=== PATIENT | female | born 1990 | race Caucasian/White ===

== ENCOUNTER → 2017-12-11 | Outpatient (CLI) | payer OTHER ==
[2017-12-11 10:18] LABS: BASOPHIL # 0.1 TH/MM3 (0-0.2); BASOPHIL % 1.4 % (0.0-2.0); EOSINOPHIL # 0.4 TH/MM3 (0-0.4); EOSINOPHIL % 5.3 % (0.0-4.0); HEMATOCRIT 41.2 % (35.0-46.0); HEMO FLAGS DIFF FINAL; HEMOGLOBIN 13.8 GM/DL (11.6-15.3); LYMPH % 26.3 % (9.0-44.0); LYMPHOCYTE # 1.8 TH/MM3 (1.0-4.8); MEAN CELL VOLUME 88.5 FL (80.0-100.0); MEAN CORPUSCULAR HEMOGLOBIN 29.7 PG (27.0-34.0); MEAN CORPUSCULAR HGB CONC 33.6 % (32.0-36.0); MEAN PLATELET VOLUME 9.3 FL (7.0-11.0); MONO % 9.6 % (0.0-8.0); MONOCYTE # 0.7 TH/MM3 (0-0.9); NEUT % 57.4 % (16.0-70.0); PLATELET COUNT 244 TH/MM3 (150-450); RED BLOOD COUNT 4.66 MIL/MM3 (4.00-5.30); RED CELL DISTRIBUTION WIDTH 13.6 % (11.6-17.2)
[2017-12-11 10:29] LABS: ALBUMIN 3.4 GM/DL (3.4-5.0); ANION GAP 5 MEQ/L (5-15); AST (GOT) 15 U/L (15-37); BICARBONATE 28.1 MEQ/L (21.0-32.0); BLOOD UREA NITROGEN 16 MG/DL (7-18); CALCIUM 8.6 MG/DL (8.5-10.1); CHLORIDE 108 MEQ/L (98-107); CREATININE 0.76 MG/DL (0.50-1.00); GLOMERULAR FILTRATION RATE 91 ML/MIN (>89); GLUCOSE,FASTING 79 MG/DL (74-99); POTASSIUM 4.1 MEQ/L (3.5-5.1); SODIUM (NA) 141 MEQ/L (136-145)
[2017-12-11 10:39] LABS: ALKALINE PHOSPHATASE 84 U/L (45-117); ALT (GPT) 18 U/L (10-53); FREE T4 0.87 NG/DL (0.76-1.46); TOTAL BILIRUBIN ADULT 0.3 MG/DL (0.2-1.0)
== END ==
LOC: PLAB 07:41
DX: R00.2 Palpitations (principal)
CPT/HCPCS: 36415; 80053; 84439; 84443; 85025

== ENCOUNTER 2018-07-31 03:41 | Inpatient (IN) ==
[2018-07-31] MEDS ORDERED: fentaNYL Citrate Inj 100 MCG/2 ML Ampul IV.PUSH PRN ×2 (04:20)
[2018-07-31] MEDS ORDERED: Naloxone Inj 0.4 MG/ML Vial IV.PUSH PRN (04:20)
[2018-07-31] MEDS ORDERED: Sod Chloride 0.9% Inj 1,000 ML IV.CONT PRN (04:20)
[2018-07-31] MEDS ORDERED: Sodium Chlor 0.9% Inj 500 ML IV.SIG PRN (04:20)
[2018-07-31] MEDS ORDERED: Oxytocin 30 Units/500ml Premix 30 UNITS/500 ML BAG IV.SIG ONE (04:20)
[2018-07-31] MEDS ORDERED: Citric Acid/Sodium Citrate Liq 30 ML UDC PO SCH ×2 (04:30→05:45)
--- NOTE | 2018-07-31 04:50 | ED ---
History of Present Illness Primary Care Physician: Brenda Medley MD Moth Exterminator Dr. Chan Chief Complaint: Vaginal bleeding History of Present Illness: 27-year-old at 34-week and 5 days presents complaining of timothy vaginal bleeding. Patient was admitted approximately 1-2 days ago for the same complaint. She reports getting up out of bed bleeding passing clots bleeding down the leg. 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 Past medical history asthma Allergies amoxicillin erythromycin past surgical history delivery and pilonidal cyst removal Weeks Gestation:: 34 Para: 1 : 3 Review of Systems All other systems reviewed negative except as stated in HPI [facility] - Medical History Medical History: Medical History (Last Updated 07/28/18 @ 17:24 by Franklin Chan MD) Delivery by section for breech presentation (Acute) Asthma affecting in third trimester (Acute) Asthma - Surgical History Surgical History: Surgical History (Last Updated 07/28/18 @ 17:24 by Franklin Chan MD) History of excision of pilonidal cyst - Family History Family History: Family History (Last Updated 07/28/18 @ 17:24 by Franklin Chan MD) Other Family history normal - Tobacco History Second Hand Smoke Exposure: No Smoking Status: Never smoker - Alcohol History How Often Do You Have a Drink Containing Alcohol: Never - Substance Use History Substance History: No History of Abuse - Travel History History of Recent Travel: No Medications and Allergies Active Medications: Active Medications Citric Acid/Sodium Citrate (Sodium Citrate/Citric Acid Liq) 30 ml PO BUSINESS AND FINANCIAL COUNSEL [facility] Stop: 08/04/18 04:29 Fentanyl Citrate (Fentanyl Inj) 50 mcg IV.PUSH Q1H PRN PRN Reason: Pain Scale 3 - 5 Fentanyl Citrate (Fentanyl Inj) 100 mcg IV.PUSH Q1H PRN PRN Reason: PAIN SCALE 6 TO 10 Clindamycin/Sodium Chloride (Cleocin 900 Mg/Ns Premix) 900 mg in 50 mls @ 100 mls/hr IV.SIG Q8H JORGE L Lactated Ringer's (Lr 1000 Ml Inj) 1,000 mls @ 3,000 mls/hr IV.SIG UNSCH PRN PRN Reason: compromise or epidural Lactated Ringer's (Lr 1000 Ml Inj) 1,000 mls @ 125 mls/hr IV.CONT .Q8H JORGE L Sodium Chloride (Ns Inj) 500 mls @ 1,000 mls/hr IV.SIG UNSCH PRN PRN Reason: SEE LABEL COMMENTS Sodium Chloride (Ns Inj) 1,000 mls @ 100 mls/hr IV.CONT .Q10H PRN PRN Reason: SEE LABEL COMMENTS Oxytocin (Pitocin 30 Units/Ns 500 Ml Premix) 30 units in 500 mls @ 999 mls/hr IV.SIG BOLUS ONE Stop: 07/31/18 04:50 Lidocaine HCl (Xylocaine 1% Inj) 0.1 ml I-DERMAL PRN PRN PRN Reason: For IV start Stop: 08/03/18 04:19 Lidocaine HCl (Xylocaine 1% Inj) 10 ml INFILTRATN PRN PRN PRN Reason: For episiotomy repair Stop: 08/02/18 04:19 Mineral Oil (Muri-Lube Oil) 10 ml TOPICAL PRN PRN PRN Reason: PRN perineal massage Naloxone HCl (Narcan Inj) 0.1 mg IV.PUSH Q2M PRN PRN Reason: for opiate reversal Allergies Allergy/AdvReac Type Severity Reaction Status Date / Time amoxicillin Allergy Severe HIVES Verified 07/28/18 16:00 erythromycin base Allergy Severe HIVES Verified 07/28/18 16:00 Home Medications Medication Instructions Recorded Confirmed Type vit-iron fum-folic ac 1 tab PO DAILY 07/28/18 07/31/18 History [ Vitamin] Exam Vital signs: Vital Signs 07/31/18 03:56 07/31/18 04:00 Temperature 98.1 F Pulse Rate 89 Respiratory Rate 18 Blood Pressure 131/81 Intake & Output 07/30/18 07/30/18 07/31/18 06:59 18:59 06:59 Weight 113.398 kg - Constitutional no acute distress - Routine HEENT Exam Head: Present: normocephalic ENT: Present: mucous membranes moist - Routine Neck Exam Present: supple - Routine Chest/Breast/Axilla Exam Chest wall: Absent: tenderness - Routine Respiratory Exam Absent: accessory muscle use - Routine Cardiovascular Exam Present: RRR - Routine Abdominal Exam Present: soft (Gravid, NST in progress moderate variability noted, uterine incision is nontender to touch or palpation no contractions palpated) - Routine Exam Comments: Sterile speculum exam approximately 20 cc of clotted blood noted at the cervical os-dark in color. Vaginal exam cervix is 1-2 cm dilated 50% effaced -2 -3 station with a part palpated Limited bedside ultrasound foot seen at the cervical os-consistent with footling breech cervix appears shortened however limited by no transvaginal component placenta does not appear to be consistent with abruption at this time Assessment and Plan - Diagnosis (1) Vaginal bleeding during , antepartum Code(s): O46.90 - Antepartum hemorrhage, unspecified, unspecified trimester Status: Acute (2) Footling breech presentation Code(s): O32.8XX0 - Maternal care for other malpresentation of fetus, not applicable or unspecified Status: Acute (3) Previous section Code(s): Z98.891 - History of uterine scar from previous surgery Status: Acute (4) 34 weeks gestation of Code(s): Z3A.34 - 34 weeks gestation of Status: Acute - Plan Plan admit N.p.o. CBC, PT PTT, fibrinogen, type and screen will change to type and cross if bleeding resumes Patient has received a dose of steroids on her last admission IV antibiotics Discussed with Dr. Fenton-agrees with admission and also advises official ultrasound in the a.m. Discharge Plan - Discharge Disposition Patient Disposition: ED Admit(ED Internal Use Only) - Discharge Condition Condition: Good - Physicians Team ED Provider: Chana Fonseca Primary Care Provider: Brenda Medley
--- NOTE | 2018-07-31 04:53 | P.HPOB ---
Patient Name: Suzanne Cramer Date of : 89 Patient Status: Inpatient Attending Provider: Franklin Chan Date: 07/31/18 04:42 Initialization Date: 07/31/18 04:42 History of Present Illness Primary Care Physician: Brenda Medley MD Pattern Attendant Dr. Chan Chief Complaint: Vaginal bleeding History of Present Illness: 27-year-old at 34-week and 5 days presents complaining of timothy vaginal bleeding. Patient was admitted approximately 1-2 days ago for the same complaint. She reports getting up out of bed bleeding passing clots bleeding down the leg. 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 Past medical history asthma Allergies amoxicillin erythromycin past surgical history delivery and pilonidal cyst removal Weeks Gestation:: 34 Para: 1 : 3 Review of Systems All other systems reviewed negative except as stated in HPI [facility] - Medical History Medical History: Medical History (Last Updated 07/28/18 @ 17:24 by Franklin Chan MD) Delivery by section for breech presentation (Acute) Asthma affecting in third trimester (Acute) Asthma - Surgical History Surgical History: Surgical History (Last Updated 07/28/18 @ 17:24 by Franklin Chan MD) History of excision of pilonidal cyst - Family History Family History: Family History (Last Updated 07/28/18 @ 17:24 by Franklin Chan MD) Other Family history normal - Tobacco History Second Hand Smoke Exposure: No Smoking Status: Never smoker - Alcohol History How Often Do You Have a Drink Containing Alcohol: Never - Substance Use History Substance History: No History of Abuse - Travel History History of Recent Travel: No Medications and Allergies Active Medications: Active Medications Citric Acid/Sodium Citrate (Sodium Citrate/Citric Acid Liq) 30 ml PO [employer] [facility] Stop: 08/04/18 04:29 Fentanyl Citrate (Fentanyl Inj) 50 mcg IV.PUSH Q1H PRN PRN Reason: Pain Scale 3 - 5 Fentanyl Citrate (Fentanyl Inj) 100 mcg IV.PUSH Q1H PRN PRN Reason: PAIN SCALE 6 TO 10 Clindamycin/Sodium Chloride (Cleocin 900 Mg/Ns Premix) 900 mg in 50 mls @ 100 mls/hr IV.SIG Q8H [facility] Lactated Ringer's (Lr 1000 Ml Inj) 1,000 mls @ 3,000 mls/hr IV.SIG UNSCH PRN PRN Reason: compromise or epidural Lactated Ringer's (Lr 1000 Ml Inj) 1,000 mls @ 125 mls/hr IV.CONT .Q8H JORGE L Sodium Chloride (Ns Inj) 500 mls @ 1,000 mls/hr IV.SIG UNSCH PRN PRN Reason: SEE LABEL COMMENTS Sodium Chloride (Ns Inj) 1,000 mls @ 100 mls/hr IV.CONT .Q10H PRN PRN Reason: SEE LABEL COMMENTS Oxytocin (Pitocin 30 Units/Ns 500 Ml Premix) 30 units in 500 mls @ 999 mls/hr IV.SIG BOLUS ONE Stop: 07/31/18 04:50 Lidocaine HCl (Xylocaine 1% Inj) 0.1 ml I-DERMAL PRN PRN PRN Reason: For IV start Stop: 08/03/18 04:19 Lidocaine HCl (Xylocaine 1% Inj) 10 ml INFILTRATN PRN PRN PRN Reason: For episiotomy repair Stop: 08/02/18 04:19 Mineral Oil (Muri-Lube Oil) 10 ml TOPICAL PRN PRN PRN Reason: PRN perineal massage Naloxone HCl (Narcan Inj) 0.1 mg IV.PUSH Q2M PRN PRN Reason: for opiate reversal Allergies Allergy/AdvReac Type Severity Reaction Status Date / Time amoxicillin Allergy Severe HIVES Verified 07/28/18 16:00 erythromycin base Allergy Severe HIVES Verified 07/28/18 16:00 Home Medications Medication Instructions Recorded Confirmed Type vit-iron fum-folic ac 1 tab PO DAILY 07/28/18 07/31/18 History [ Vitamin] Exam Vital signs: Vital Signs 07/31/18 03:56 07/31/18 04:00 Temperature 98.1 F Pulse Rate 89 Respiratory Rate 18 Blood Pressure 131/81 Intake & Output 07/30/18 07/30/18 07/31/18 06:59 18:59 06:59 Weight 113.398 kg - Constitutional no acute distress - Routine HEENT Exam Head: Present: normocephalic ENT: Present: mucous membranes moist - Routine Neck Exam Present: supple - Routine Chest/Breast/Axilla Exam Chest wall: Absent: tenderness - Routine Respiratory Exam Absent: accessory muscle use - Routine Cardiovascular Exam Present: RRR - Routine Abdominal Exam Present: soft (Gravid, NST in progress moderate variability noted, uterine incision is nontender to touch or palpation no contractions palpated) - Routine Exam Comments: Sterile speculum exam approximately 20 cc of clotted blood noted at the cervical os-dark in color. Vaginal exam cervix is 1-2 cm dilated 50% effaced -2 -3 station with a part palpated Limited bedside ultrasound foot seen at the cervical os-consistent with footling breech cervix appears shortened however limited by no transvaginal component placenta does not appear to be consistent with abruption at this time Assessment and Plan - Diagnosis (1) Vaginal bleeding during , antepartum Code(s): O46.90 - Antepartum hemorrhage, unspecified, unspecified trimester Status: Acute (2) Footling breech presentation Code(s): O32.8XX0 - Maternal care for other malpresentation of fetus, not applicable or unspecified Status: Acute (3) Previous section Code(s): Z98.891 - History of uterine scar from previous surgery Status: Acute (4) 34 weeks gestation of Code(s): Z3A.34 - 34 weeks gestation of Status: Acute - Plan Plan admit N.p.o. CBC, PT PTT, fibrinogen, type and screen will change to type and cross if bleeding resumes Patient has received a dose of steroids on her last admission IV antibiotics Discussed with Dr. Fenton-agrees with admission and also advises official ultrasound in the a.m.
[2018-07-31 04:57] LABS: Baso # (Auto) 0.1 th/mm3 (0.0-0.2); Baso % (Auto) 0.4 % (0.0-2.0); Eos # (Auto) 0.2 th/mm3 (0.0-0.4); Eos % (Auto) 1.3 % (0.0-4.0); Hematocrit 37.8 % (35.0-46.0); Hemoglobin 13.3 gm/dL (11.6-15.3); Lymph # (Auto) 2.3 th/mm3 (1.0-4.8); Mean Corpuscular HGB Conc 35.2 % (32.0-36.0); Mean Corpuscular Hemoglobin 31.7 pg (27.0-34.0); Mean Platelet Volume 9.1 fL (7.0-11.0); Mono # (Auto) 1.3 th/mm3 (0.0-0.9); Mono % (Auto) 10.2 % (0.0-8.0); Neut # (Auto) 8.9 th/mm3 (1.8-7.7); Neut % (Auto) 70.1 % (16.0-70.0); Platelet Count 227 th/mm3 (150-450); Red Blood Count 4.21 mil/mm3 (4.00-5.30); Red Cell Distribution Width 13.1 % (11.6-17.2); White Blood Count 12.6 th/mm3 (4.0-11.0)
[2018-07-31 05:11] LABS: Activated Partial Thrombo Time 25.6 sec (23.4-31.7); INR 0.9 Ratio; Prothrombin Time 9.4 sec (9.8-11.6)
[2018-07-31 05:17] LABS: Amorphous Sediment,Urine Rare /hpf; Bilirubin,Urine Negative (Negative); Clarity,Urine Hazy (Clear); Color,Urine Yellow (Yellw/Straw); Glucose,Urine (UA) Negative (Negative); Leukocyte Esterase,Urine Negative (Negative); Mucus,Urine Few /lpf (Occasional); Nitrite,Urine Negative (Negative); Specific Gravity,Urine 1.011 (1.002-1.035); Squamous Epithelial Cell,Urine 1 /hpf (0-5)
[2018-07-31 05:19] LABS: Alanine Aminotransferase 23 U/L (10-53); Albumin 2.4 g/dL (3.4-5.0); Anion Gap 10 meq/L (5-15); Aspartate Aminotransferase 16 U/L (15-37); Blood Urea Nitrogen 8 mg/dL (7-18); Calcium 7.9 mg/dL (8.5-10.1); Carbon Dioxide 21.1 meq/L (21.0-32.0); Chloride 111 meq/L (98-107); Glomerular Filtration Rate Greater Than 89 mL/min (>89); Glucose,Random 94 mg/dL (74-106); Potassium 3.7 meq/L (3.5-5.1); Sodium 142 meq/L (136-145)
[2018-07-31 05:21] LABS: Alkaline Phosphatase 58 U/L (45-117); Total Protein 6.3 g/dL (6.4-8.2)
[2018-07-31] MEDS ORDERED: Mag Sulf/Water 4 gm/100 ml 100 ML IV.SIG ONE ×2 (05:42→06:00)
[2018-07-31] MEDS ORDERED: Mag Sulf/Water 40 gm/1000 ml 40 GM/1,000 ML BAG IV.CONT ONE (05:43)
[2018-07-31] MEDS ORDERED: Mag Sulf/Water 40 gm/1000 ml 40 GM/1,000 ML BAG IV.CONT SCH (06:00)
[2018-07-31] MEDS ORDERED: Clindamycin 900 mg/NS Premix 900 MG/50 ML PIGGYBACK IV.SIG SCH (06:22)
[2018-07-31] MEDS ORDERED: Acetaminophen 325 MG Tablet PO PRN (06:22)
--- NOTE | 2018-07-31 06:34 | P.OBGPN ---
S: no more bleeding or pain, no LOF, + FM, O: : 2-3cm/50%/-2. Scant dark red blood on glove FHTs: 140s moderate variability, aceleration present, around 4 variable deceleration with contractions at 5am, since resolved TOCO: none at this time, overnight occasional ctx ever 10min A/P: 27 yo at 34w5d admitted for vaginal bleeding 1. IUP: cat 1-2 tracing, mostly reassuring - EFW (07/29) = 2313g (31%) AC 16%, ARTURO 14cm, placenta fundal Rt lateral - s/p BMZ (07/29) - GBS pending 2. Vaginal bleeding: unsure etiology at this time, could be combination of cervical change / abruption. Pt had prior admission x 2d (07/29-) for VB w/o source. Pt cervix at that time was C/T/H on review and today 1-2/50/-3 and now 2 -3cm and deonte occasionally with some sporadic variable deceleration that responded to IV fluids. Discussed plan and concerns with pt, she verbalized understanding and had no further questions. - Rh pos - Today BPP 8/8, ARTURO 11cm 3. Malpresentation: breech on US today 3. h/o : for breech at term, pt desires , discussed risks / benefits of TOLAC, , and scheduled repeat ,pt aware depends on multiple variables: position, status and bisohp score and or spontaneous labor 4. Asthma: controlled w/o meds PLAN: NICU consult, continuous EFM and toco, BPP today, allow to eat, d/c mag and abx as not indicated, KB test as flow not available, nursing to collect, GBS culture NOT PCR, wet prep and GCC. Admitted indefinitely at this time and continue to watch for signs of abruption, labor, distress.
[2018-07-31] MEDS: Prenatal Vit/Ca/Iron/Folic Acid Tablet PO SCH (10:52)
[2018-07-31] MEDS ORDERED: fentaNYL Citrate Inj 100 MCG/2 ML Ampul IV.PUSH ONE (17:45)
--- NOTE | 2018-08-01 09:01 | P.OBGPN ---
34 6/7 weeks G1 admitted for vaginal bleeding 2nd episode in one week, transverse presentation pt feeling contractions every 6-8 minutes starting in her back and moving around to abd sve per nurse 3 cm strip reviewed by Dr Chan, reactive category 1 pt had steroids last visit Plan: keep NPO shower iv hydration watch for labor lungs CTA anterior/posterior abd soft NT, +BS heart RRR, S1/S1 no murmur
[2018-08-01] MEDS: Prenatal Vit/Ca/Iron/Folic Acid Tablet PO SCH (09:11)
--- NOTE | 2018-08-01 13:32 | P.OBGPN ---
DR HEAD IN TO SEE PT PT DOING WELL DENIES BLEEDING OR CONTRACTIONS SHE WILL BE TRANSFERRED TO ANTEPARTUM PLAN FOR PRIMARY C SECTION IF PT GOES INTO LABOR AND BABY REMAINS BREECH OR COMPROMISE
[2018-08-02] MEDS ORDERED: Ketorolac Inj 30 MG/ML (IVP) Vial IV.PUSH ONE (03:00)
[2018-08-02] MEDS ORDERED: Morphine Sulfate PF Inj 5 MG/10 ML Ampul ONE (03:05)
[2018-08-02] MEDS ORDERED: Zolpidem Tartrate 5 MG Tablet PO PRN (04:42)
[2018-08-02] MEDS ORDERED: Simethicone 80 MG Chew Tablet PO PRN (04:42)
--- NOTE | 2018-08-02 04:52 | P.OP ---
- Preoperative Diagnosis (1) 35 weeks gestation of (2) Breech (3) Labor and delivery affected by breech presentation - Postoperative Diagnosis (1) Previous section (2) Delivery by section for breech presentation (3) 35 weeks gestation of (4) Breech Date of procedure: 08/02/18 Procedure: Repeat low transverse section Surgeon: Franklin Chan MD Estimated blood loss (mL): 600 Pathology: other (Placenta) Operation and Findings: Count were correct Findings viable female with Apgars of 9 and 9 weight was 4 pounds 8 ounces Normal uterus normal tubes normal ovaries. The placenta looked grossly normal. Indication for the procedure this is a patient who is been in the hospital for several days she has had 2 episodes of right red vaginal bleeding. She was Admitted and followed. The Strip is been category 1 the entire time she got up this morning had some bleeding and was having Some strong contractions when examined by the charge nurse she was 5 cm and in active labor. was called Procedure in detail Taken to the operating room identified by name band and verbally and given a spinal anesthetic. She was prepped and draped in the usual sterile manner for a section. A time out was taken. The old incision was excised sharply and the Pfannenstiel incision was made and carried down to the fascia the fascia was nicked bilaterally and the fascia was taken off the rectus muscle by blunt and sharp dissection. The rectus muscles were spread bluntly and the peritoneum was entered under direct vision. The incision was extended with care to avoid the urinary bladder. A bladder blade was placed and a bladder flap was created in the usual fashion. The lower uterine segment was then incised sharply in a transverse manner and taken down in the midline until the uterine cavity was entered. The incision was extended with the surgeon's fingers. The breech was grasped and with gentle fundal pressure delivered the legs and the thorax. The arms were reduced with gentle fundal pressure the vertex was delivered. The hypopharynx and nasopharynx were suctioned. The cord clamping was delayed 45 seconds and then the cord was clamped cut and the was handed over to the resuscitation team cord blood was obtained the placenta was removed manually and the uterus was curettaged twice with a wet lap. The uterus was delivered from the abdomen. The uterine incision was repaired with 0 Vicryl in a running fashion in 2 layers the second layer imbricating the first. The cul-de-sac and gutters were cleaned of blood and debris the uterus was delivered back into the abdomen. The rectus muscles were reapproximated with 0 Vicryl in a running the fascia was repaired with 0 Vicryl from lateral to midline bilaterally. The subcutaneous layer was repaired with a 3-0 Vicryl. The skin was repaired with a 4-0 Monocryl in a subcuticular manner. Patient tolerated the procedure well and went to recovery room in good condition.
[2018-08-02] MEDS ORDERED: ceFAZolin Inj 2,000 MG in Sodium Chlor 0.9% Inj 80 ML IV.SIG SCH (05:00)
[2018-08-02] MEDS ORDERED: Naloxone Inj 0.4 MG/ML Vial IV.PUSH PRN (06:26)
[2018-08-02] MEDS: Oxytocin 30 Units/500ml Premix 30 UNITS/500 ML BAG IV.SIG ONE ×2 (08:29→17:24)
[2018-08-02] MEDS: Prenatal Vit/Ca/Iron/Folic Acid Tablet PO SCH (08:30)
[2018-08-02] MEDS ORDERED: miSOPROStol 200 MCG Tablet PO ONE (09:00)
[2018-08-02] MEDS ORDERED: Oxytocin 30 Units/500ml Premix 30 UNITS/500 ML BAG IV.SIG ONE (09:00)
[2018-08-02] MEDS: Oxytocin 30 Units/500ml Premix 30 UNITS/500 ML BAG IV.SIG PRN ×2 (11:32→23:21)
[2018-08-02] MEDS: ceFAZolin 2 GM Premix Inj 2 GM/50 ML PIGGYBACK IV.SIG SCH ×2 (11:42→18:44)
[2018-08-02 14:29] LABS: Hemoglobin 12.1 gm/dL (11.6-15.3); Mean Corpuscular HGB Conc 35.6 % (32.0-36.0); Mean Corpuscular Hemoglobin 32.5 pg (27.0-34.0); Mean Corpuscular Volume 91.3 fL (80.0-100.0); Mean Platelet Volume 8.5 fL (7.0-11.0); Platelet Count 204 th/mm3 (150-450); Red Blood Count 3.72 mil/mm3 (4.00-5.30); Red Cell Distribution Width 13.2 % (11.6-17.2); White Blood Count 21.5 th/mm3 (4.0-11.0)
[2018-08-02] MEDS ORDERED: miSOPROStol 200 MCG Tablet PO PRN (14:32)
[2018-08-02] MEDS: miSOPROStol 200 MCG Tablet PO SCH (23:21)
[2018-08-03] MEDS: miSOPROStol 200 MCG Tablet PO SCH ×3 (04:00→15:45)
[2018-08-03] MEDS: Oxytocin 30 Units/500ml Premix 30 UNITS/500 ML BAG IV.SIG PRN (06:15)
[2018-08-03 06:54] LABS: Baso # (Auto) 0.1 th/mm3 (0.0-0.2); Baso % (Auto) 0.4 % (0.0-2.0); Eos # (Auto) 0.3 th/mm3 (0.0-0.4); Eos % (Auto) 2.3 % (0.0-4.0); Hematocrit 31.8 % (35.0-46.0); Lymph # (Auto) 2.4 th/mm3 (1.0-4.8); Lymph % (Auto) 16.8 % (9.0-44.0); Mean Corpuscular HGB Conc 34.6 % (32.0-36.0); Mean Corpuscular Hemoglobin 31.9 pg (27.0-34.0); Mean Corpuscular Volume 92.3 fL (80.0-100.0); Mean Platelet Volume 8.6 fL (7.0-11.0); Mono # (Auto) 1.3 th/mm3 (0.0-0.9); Mono % (Auto) 9.2 % (0.0-8.0); Neut % (Auto) 71.3 % (16.0-70.0); Platelet Count 175 th/mm3 (150-450); Red Blood Count 3.45 mil/mm3 (4.00-5.30); Red Cell Distribution Width 13.5 % (11.6-17.2); White Blood Count 14.1 th/mm3 (4.0-11.0)
--- NOTE | 2018-08-03 08:58 | P.PNOB ---
Subjective Post op day: 1 Objective Vital Signs/I&O: Vital Signs 08/02/18 10:00 08/02/18 14:00 08/02/18 19:30 Temperature 98.0 F 98.2 F Pulse Rate 88 78 Respiratory Rate 18 20 18 Blood Pressure 113/72 108/62 08/02/18 20:00 08/03/18 00:00 08/03/18 03:56 Temperature 97.7 F 98.0 F 98.6 F Pulse Rate 97 H 85 87 Respiratory Rate 18 18 18 Blood Pressure 121/69 122/69 119/78 08/03/18 07:11 08/03/18 08:00 Temperature 98.1 F Pulse Rate 83 Respiratory Rate 18 18 Blood Pressure 120/69 Intake & Output 08/02/18 08/03/18 08/03/18 18:59 06:59 18:59 Intake Total 1100 / 1100 500 / 500 Balance 1100 / 1100 500 / 500 Intake: IV 1100 / 1100 500 / 500 Pitocin 30 Units/NS 500 ml 1000 / 1000 500 / 500 Premix 30 units In 500 ml @ 100 mls/hr IV.SIG UNSCH PRN Rx#: [id number] Ancef 2 GM Premix Inj 2 gm In 100 / 100 50 ml @ 200 mls/hr IV.SIG Q8H JORGE L Rx#:[id number] Result Diagrams: 08/03/18 06:30 07/31/18 04:45 Objective Remarks: GENERAL: Well-nourished, well-developed patient. CARDIOVASCULAR: Regular rate and rhythm without murmurs, gallops, or rubs. RESPIRATORY: Breath sounds equal bilaterally. No accessory muscle use. ABDOMEN/GI: Abdomen soft, non-tender, bowel sounds present. Incision: dressing, Clean, dry and intact. Fundus: Firm, non-tender at umbilicus. GENITOURINARY: Light to moderate bleeding. EXTREMITIES: No cyanosis or edema, non-tender, without signs of DVT. Medications and IVs: Active Medications Diphtheria/Pertussis/Tetanus Vacc (Boostrix Vaccine Inj) 0.5 ml IM .ONCE ONE Stop: 08/03/18 16:01 Ibuprofen (Motrin) 800 mg PO Q8H PRN PRN Reason: cramping Last Admin: 08/03/18 03:59 Dose: 800 mg Measles/Mumps/Rubella Vaccine Live (M-M-R Ii Vaccine Inj) 0.5 ml SQ .ONCE ONE Stop: 08/03/18 16:01 Misoprostol (Cytotec) 400 mcg PO Q6H [facility] Last Admin: 08/03/18 04:00 Dose: 400 mcg Ondansetron HCl (Zofran Inj) 4 mg IV.PUSH Q6H PRN PRN Reason: NAUSEA OR VOMITING Oxycodone/Acetaminophen (Percocet 5/325 Mg) 1 tab PO Q4H PRN PRN Reason: PAIN SCALE 3 TO 5 Oxycodone/Acetaminophen (Percocet 5/325 Mg) 2 tab PO Q4H PRN PRN Reason: PAIN SCALE 6 TO 10 Vit/Calcium/Iron/Folic Ac (Stuartnatal Plus 3) 1 tab PO DAILY [facility] Last Admin: 08/02/18 08:30 Dose: Not Given Simethicone (Mylicon Chew) 80 mg PO QID PRN PRN Reason: FLATULENCE Sodium Chloride (Ns Flush) 2 ml IV.FLUSH BID [facility] Last Admin: 08/03/18 08:00 Dose: Not Given Sodium Chloride (Ns Flush) 2 ml IV.FLUSH PRN PRN PRN Reason: FLUSH AFTER USING IV ACCESS Zolpidem Tartrate (Ambien) 5 mg PO HS PRN PRN Reason: INSOMNIA Assessment and Plan - Diagnosis (1) Status post repeat low transverse section Code(s): Z98.891 - History of uterine scar from previous surgery Status: Acute Plan: routine post op care - Plan post op day 1, repeat c section at 35 weeks/breech pt had 2 episodes of vaginal bleeding with clots over a 3 day period, admitted for observation and went into labor pt doing well yesterday vaginal bleeding had increased but it normal this am, labs stable pt ambulating in room without difficulty pain well managed with motrin, pt aware that percocet is available if needed pt to have gibbs removed and shower today and bonding with infant routine post op care Discharge Planning: dc home 1-2 days
[2018-08-03] MEDS: Prenatal Vit/Ca/Iron/Folic Acid Tablet PO SCH (09:31)
[2018-08-03] MEDS ORDERED: Measles/Mumps/Rubella Vaccine Inj 0.5 ML Vial SQ ONE (16:00)
[2018-08-03] MEDS ORDERED: Diphtheria/Tetanus/Pertussis Vaccine Inj 0.5 ML Syringe IM ONE (16:00)
--- NOTE | 2018-08-04 08:08 | P.PNOB ---
Subjective Post op day: 2 Interval history: pt doing well, much less bleeding today Objective Vital Signs/I&O: Vital Signs 08/03/18 20:00 Temperature 98.3 F Pulse Rate 67 Respiratory Rate 18 Blood Pressure 129/77 Result Diagrams: 08/03/18 06:30 07/31/18 04:45 Objective Remarks: GENERAL: Well-nourished, well-developed patient. CARDIOVASCULAR: Regular rate and rhythm without murmurs, gallops, or rubs. RESPIRATORY: Breath sounds equal bilaterally. No accessory muscle use. ABDOMEN/GI: Abdomen soft, non-tender, bowel sounds present. Incision: Clean, dry and intact. Fundus: Firm, non-tender at umbilicus. GENITOURINARY: Light to moderate bleeding. EXTREMITIES: No cyanosis or edema, non-tender, without signs of DVT. Medications and IVs: Active Medications Ibuprofen (Motrin) 800 mg PO Q8H PRN PRN Reason: cramping Last Admin: 08/04/18 00:24 Dose: 800 mg Ondansetron HCl (Zofran Inj) 4 mg IV.PUSH Q6H PRN PRN Reason: NAUSEA OR VOMITING Oxycodone/Acetaminophen (Percocet 5/325 Mg) 1 tab PO Q4H PRN PRN Reason: PAIN SCALE 3 TO 5 Oxycodone/Acetaminophen (Percocet 5/325 Mg) 2 tab PO Q4H PRN PRN Reason: PAIN SCALE 6 TO 10 Vit/Calcium/Iron/Folic Ac (Stuartnatal Plus 3) 1 tab PO DAILY [facility] Last Admin: 08/03/18 09:31 Dose: 1 tab Simethicone (Mylicon Chew) 80 mg PO QID PRN PRN Reason: FLATULENCE Sodium Chloride (Ns Flush) 2 ml IV.FLUSH BID [facility] Last Admin: 08/03/18 20:22 Dose: 2 ml Sodium Chloride (Ns Flush) 2 ml IV.FLUSH PRN PRN PRN Reason: FLUSH AFTER USING IV ACCESS Zolpidem Tartrate (Ambien) 5 mg PO HS PRN PRN Reason: INSOMNIA Assessment and Plan - Diagnosis (1) Status post repeat low transverse section Code(s): Z98.891 - History of uterine scar from previous surgery Status: Acute - Plan post op day 2, repeat c section at 35 weeks/breech pt had 2 episodes of vaginal bleeding with clots over a 3 day period, admitted for observation and went into labor pt doing well pt ambulating in room without difficulty and bonding with infant routine post op care Discharge Planning: dc home POD #3 - Attending Attestation pt seen by me
[2018-08-04] MEDS: Prenatal Vit/Ca/Iron/Folic Acid Tablet PO SCH (09:00)
[2018-08-04 16:55] VITALS: RESP 18
[2018-08-05 07:50] VITALS: BP 126/80; PULSE 98; TEMP 98.6
[2018-08-05] MEDS: Prenatal Vit/Ca/Iron/Folic Acid Tablet PO SCH (10:43)
--- NOTE | 2018-08-05 11:00 | P.PNOB ---
Subjective Post op day: 3 Interval history: doing well, ready for discharge Objective Vital Signs/I&O: Vital Signs 08/04/18 16:15 08/04/18 20:00 08/05/18 07:48 Temperature 98.5 F 98.6 F Pulse Rate 96 H 100 H 98 H Respiratory Rate 18 18 18 Blood Pressure 138/71 123/67 126/80 Result Diagrams: 08/03/18 06:30 07/31/18 04:45 Objective Remarks: GENERAL: Well-nourished, well-developed patient. CARDIOVASCULAR: Regular rate and rhythm without murmurs, gallops, or rubs. RESPIRATORY: Breath sounds equal bilaterally. No accessory muscle use. ABDOMEN/GI: Abdomen soft, non-tender, bowel sounds present. Incision: Clean, dry and intact. Fundus: Firm, non-tender at umbilicus. GENITOURINARY: Light to moderate bleeding. EXTREMITIES: No cyanosis or edema, non-tender, without signs of DVT. Medications and IVs: Active Medications Ibuprofen (Motrin) 800 mg PO Q8H PRN PRN Reason: cramping Last Admin: 08/04/18 19:49 Dose: 800 mg Ondansetron HCl (Zofran Inj) 4 mg IV.PUSH Q6H PRN PRN Reason: NAUSEA OR VOMITING Oxycodone/Acetaminophen (Percocet 5/325 Mg) 1 tab PO Q4H PRN PRN Reason: PAIN SCALE 3 TO 5 Oxycodone/Acetaminophen (Percocet 5/325 Mg) 2 tab PO Q4H PRN PRN Reason: PAIN SCALE 6 TO 10 Vit/Calcium/Iron/Folic Ac (Stuartnatal Plus 3) 1 tab PO DAILY [facility] Last Admin: 08/05/18 10:43 Dose: Not Given Simethicone (Mylicon Chew) 80 mg PO QID PRN PRN Reason: FLATULENCE Sodium Chloride (Ns Flush) 2 ml IV.FLUSH BID [facility] Last Admin: 08/05/18 10:43 Dose: Not Given Sodium Chloride (Ns Flush) 2 ml IV.FLUSH PRN PRN PRN Reason: FLUSH AFTER USING IV ACCESS Zolpidem Tartrate (Ambien) 5 mg PO HS PRN PRN Reason: INSOMNIA Assessment and Plan - Diagnosis (1) Status post repeat low transverse section Code(s): Z98.891 - History of uterine scar from previous surgery Status: Acute - Plan post op day 3, repeat c section at 35 weeks/breech pt had 2 episodes of vaginal bleeding with clots over a 3 day period, admitted for observation and went into labor pt doing well pt ambulating in room without difficulty and bonding with infant routine post op care Discharge Planning: dc home POD #3 - Attending Attestation pt seen by me
== END 2018-08-05 11:15 | disposition home or self-care (01) | DRG 786 ==
LOC: HOBED 03:41 → H2E 04:30 → H1EA 08-02 05:45
PROVIDERS: ADMIT Obstetrics & Gynecology; ATTEND Obstetrics & Gynecology
CPT/HCPCS: 59025; 76815; 76817; 76819; 76830; 80053; 80307; 81001; 83030; 85025; 85027; 85384; 85610; 85730; 86900; 86901; 87081; 87210; 87491; 87591; 88307; 96817; 99285; G0481; G0483; J0131; J0690; J1100; J1885; J2274; J2405; J2590; J3475; J7120